=== PATIENT | male | born 1975 | race Caucasian/White ===

== ENCOUNTER 2024-06-14 14:58 | Emergency (ER) | payer BC ==
[~2024-06-14] VITALS: Ht 170.2 cm; Wt 100.0 kg
[2024-06-14 15:13] VITALS: BP 119/65; PULSE 88; RESP 16; TEMP 98.2; O2SAT 98
[2024-06-14] MEDS: HYDROCODONE/ACETAMINOPHEN 5-325 MG TABLET PO ONE (16:39)
[2024-06-14] MEDS ORDERED: HYDR-4062 PO (17:28)
== END 2024-06-14 17:47 | disposition home or self-care (01) ==
LOC: EMS 15:11
DX: S52.512A Displaced fracture of left radial styloid process, initial encounter for closed fracture (principal); S52.592A Other fractures of lower end of left radius, initial encounter for closed fracture; V00.131A Fall from skateboard, initial encounter; Y93.51 Activity, roller skating (inline) and skateboarding; Y92.89 Other specified places as the place of occurrence of the external cause; Y99.8 Other external cause status
CPT/HCPCS: 99284; 73090-TC; 73110-TC; 73130-TC; Z7502; Z7610